=== PATIENT | female | born 1955 | race Hispanic/Latino ===

== ENCOUNTER 2022-03-03 17:21 | Inpatient (IN) | payer SELFPAY ==
[2022-03-03 18:25] VITALS: BMI 37.7
[2022-03-03] MEDS ORDERED: Senokot S 8.6-50 MG TAB PO PRN (19:23)
[2022-03-03] MEDS ORDERED: Calcium Carbonate 500 MG ChewTAB PO PRN (19:23)
[2022-03-03] MEDS ORDERED: Ondansetron PF 4 MG/2 ML Vial IVP PRN (19:23)
[2022-03-03] MEDS ORDERED: Guaifenesin DM 100-10/5 ML UDCUP PO PRN (19:23)
[2022-03-03] MEDS ORDERED: HYDROcodone/Acetaminophen 5/325 mg Tablet PO PRN (19:23)
[2022-03-03] MEDS ORDERED: Dextrose 5% in Water 1,000 ML IV PRN (19:23)
[2022-03-03] MEDS ORDERED: Dextrose 50% Abboject 50 ML SYRINGE SLOW IVP PRN (19:23)
[2022-03-03] MEDS ORDERED: Lactated Ringer's 1,000 ML IV SCH (19:30)
[2022-03-03] MEDS ORDERED: Lisinopril 10 MG TAB PO SCH (21:00)
[2022-03-03] MEDS: Lantus 1000 UNITS/10 ML VIAL SC SCH (21:35)
[2022-03-03] MEDS: metFORMIN 500 MG TAB PO SCH (21:35)
[2022-03-04] MEDS: Acetaminophen 325 MG TAB PO PRN ×2 (01:01→20:57)
[2022-03-04 04:59] LABS: Anion Gap 11 mmol/L (10-20); BUN (Urea Nitrogen) 13 mg/dL (9.8-20.1); Calc. Creatinine Clearance 107 mL/min (70-130); Calcium 8.8 mg/dL (7.8-10.44); Carbon Dioxide 25 mmol/L (23-31); Chloride 108 mmol/L (98-107); Estimated GFR 87; Glucose 195 mg/dL (80-115); Potassium 3.6 mmol/L (3.5-5.1); Sodium 140 mmol/L (136-145)
[2022-03-04 05:04] LABS: #Monocytes 0.9 10x3/uL (0.0-1.1); #Neutrophils 4.6 10x3/uL (1.5-8.4); %Basophils 0.3 % (0.0-2.0); %Eosinophils 0.1 % (0.0-6.0); %Lymphocytes 20.4 % (18.0-47.0); %Monocytes 13.1 % (0.0-10.0); %Neutrophils 65.8 % (40.0-75.0); Hemoglobin 10.4 g/dL (12.0-15.5); Mean Corpuscular HGB CONC 32.5 g/dL (32.0-36.0); Mean Corpuscular Hemoglobin 27.1 pg (27.0-33.0); Mean Corpuscular Volume 83.3 fl (81.6-98.3); Mean Platelet Volume 9.8 fl (7.4-10.4); Platelet Count 267 10x3/uL (150-450); RBC Distribution Width 13.9 % (11.5-14.5); Red Blood Cell (RBC) Count 3.84 10x6/uL (3.90-5.03)
[2022-03-04] MEDS: HumaLOG 300 UNITS/3 ML VIAL SC PRN ×3 (06:16→17:56)
[2022-03-04] MEDS: Enoxaparin Sodium 40 MG/0.4 ML SYRINGE SC SCH (08:49)
[2022-03-04] MEDS: cefTRIAXone\\ROCEPHIN 1 GM in Sodium Chloride 0.9% 100 ML IVPB SCH (08:50)
[2022-03-04] MEDS: Aspirin 81 mg Enteric Coated Tablet PO SCH (08:50)
[2022-03-04] MEDS: Alogliptin 6.25 MG TAB PO SCH (08:50)
[2022-03-04] MEDS: metFORMIN 500 MG TAB PO SCH ×2 (08:50→20:45)
[2022-03-04] MEDS: Amlodipine 5 MG TAB PO SCH (08:50)
[2022-03-04] MEDS: Metoprolol Tartrate 25 MG TAB PO SCH ×2 (08:55→20:47)
[2022-03-04] MEDS ORDERED: NIRMATRELVIR 150 MG/RITONAVIR 100 MG TABLET PO SCH ×3 (09:00→21:00)
[2022-03-04] MEDS: Empagliflozin 10 MG TAB PO SCH (12:36)
[2022-03-04] MEDS: Lantus 1000 UNITS/10 ML VIAL SC SCH (20:54)
[2022-03-05] MEDS: Enoxaparin Sodium 40 MG/0.4 ML SYRINGE SC SCH (08:43)
[2022-03-05] MEDS: Metoprolol Tartrate 25 MG TAB PO SCH (08:43)
[2022-03-05] MEDS: metFORMIN 500 MG TAB PO SCH (08:43)
[2022-03-05] MEDS: Alogliptin 6.25 MG TAB PO SCH (08:43)
[2022-03-05] MEDS: cefTRIAXone\\ROCEPHIN 1 GM in Sodium Chloride 0.9% 100 ML IVPB SCH (08:43)
[2022-03-05] MEDS: Aspirin 81 mg Enteric Coated Tablet PO SCH (08:44)
[2022-03-05] MEDS: Amlodipine 5 MG TAB PO SCH (08:44)
[2022-03-05] MEDS: Empagliflozin 10 MG TAB PO SCH (08:44)
[2022-03-05 11:24] VITALS: BP 139/66; TEMP 96.7
== END 2022-03-05 12:32 | disposition home or self-care (01) | DRG 871 ==
LOC: CSHTELE 17:21
PROVIDERS: ADMIT Internal Medicine; ATTEND Internal Medicine
PROC: 8E0ZXY6 Isolation (ICD-10-PCS; principal; 2022-03-03)
PROC: 3E03329 Introduction of Other Anti-infective into Peripheral Vein, Percutaneous Approach (ICD-10-PCS; 2022-03-03)
DX: A41.51 Sepsis due to Escherichia coli [E. coli] (principal); U07.1 COVID-19; N39.0 Urinary tract infection, site not specified; I10 Essential (primary) hypertension; E11.65 Type 2 diabetes mellitus with hyperglycemia; E86.0 Dehydration; E66.01 Morbid (severe) obesity due to excess calories; Z68.37 Body mass index [BMI] 37.0-37.9, adult; Z79.4 Long term (current) use of insulin; Z79.84 Long term (current) use of oral hypoglycemic drugs
CPT/HCPCS: 36415; 36416; 80048; 85025; J0696; J1650; J1815; J3490; J7120